=== PATIENT | female | born 1995 | race Caucasian/White ===

== ENCOUNTER 2016-07-15 18:46 | Outpatient (CLI) | payer OTHER ==
[~2016-07-15 18:46] MED LIST: ACET325T14 PO; PREN1TAB69 PO
[2016-07-15] MEDS ORDERED: ONDANSETRON ODT 4 MG PO ONE (20:00)
[2016-07-15] MEDS ORDERED: ONDANSETRON ODT 4 MG ONE (20:06)
[2016-07-15 20:19] LABS: BLOOD UREA NITROGEN 10 mg/dL (7-18)
[2016-07-15 20:26] LABS: ASPARTATE AMINO TRANSFERASE 12 U/L (15-37)
[2016-07-15 20:44] LABS: DAU SCREEN DISCLAIMER
== END 2016-07-15 23:00 | disposition home or self-care (01) ==
LOC: LDOP 18:46
PROVIDERS: ATTEND Obstetrics & Gynecology
DX: O26.893 Other specified pregnancy related conditions, third trimester (principal); R42 Dizziness and giddiness; O21.9 Vomiting of pregnancy, unspecified; O62.9 Abnormality of forces of labor, unspecified; O48.0 Post-term pregnancy; Z3A.41 41 weeks gestation of pregnancy
CPT/HCPCS: 36415; 59025; 80053; 80307; 81001; 82570; 83615; 84156; 84550; 85025; 99211; Q0162; G0463

== ENCOUNTER 2016-07-18 06:19 | Inpatient (IN) | payer OTHER ==
[~2016-07-18] VITALS: Ht 167.6 cm; Wt 82.7 kg
[2016-07-18 07:13] VITALS: BP 126/83
[2016-07-18] MEDS ORDERED: OXYcodone/APAP 5/325MG TABLET PO PRN ×4 (07:25→17:30)
[2016-07-18] MEDS ORDERED: OXYTOCIN 30U/ 0.9% NaCL 500ML 500 ML IV ONE (07:25)
[2016-07-18] MEDS ORDERED: CALCIUM CARBONATE 500 MG TAB.CHEW PO PRN (07:25)
[2016-07-18] MEDS ORDERED: IBUPROFEN 600 MG TABLET PO PRN (07:25)
[2016-07-18] MEDS ORDERED: FENTANYL PF 100 MCG/2ML IV PRN (07:30)
[2016-07-18] MEDS ORDERED: FENTANYL PF 100 MCG/2ML IVPush PRN (07:30)
[2016-07-18] MEDS ORDERED: ONDANSETRON 2MG/ML, 2ML IVPush PRN (07:30)
[2016-07-18] MEDS ORDERED: NEWBORN KIT ONE (07:52)
[2016-07-18] MEDS: LACTATED RINGERS 1,000 ML IV SCH ×3 (08:06→18:20)
[2016-07-18 08:07] VITALS: BP 126/83
[2016-07-18 08:18] LABS: HEMOGLOBIN 12.7 g/dL (11.7-16.4)
[2016-07-18] MEDS ORDERED: ACET-1600 PO (09:27)
[2016-07-18] MEDS ORDERED: OXYTOCIN 30U/ 0.9% NaCL 500ML 500 ML ONE ×2 (10:04→19:08)
[2016-07-18] MEDS ORDERED: LIDOCAINE 1%, 20ML ONE (10:04)
[2016-07-18] MEDS ORDERED: MISOPROSTOL 200 MCG TABLET ONE (10:04)
[2016-07-18] MEDS ORDERED: FENTANYL PF 100 MCG/2ML ONE (10:12)
[2016-07-18] MEDS ORDERED: CALCIUM CARBONATE 500 MG TAB.CHEW ONE (10:29)
[2016-07-18] MEDS ORDERED: FENTANYL/BUPIV./NS/PF 250 ML EPIDCONT ONE (12:00)
[2016-07-18] MEDS ORDERED: LIDOCAINE/PF 1.5%-EPI 1:200K, 30ML ONE (12:00)
[2016-07-18] MEDS ORDERED: BUPIVACAINE/PF 0.25% ONE (12:00)
[2016-07-18] MEDS ORDERED: OXYTOCIN 30U/ 0.9% NaCL 500ML 500 ML IV PRN (12:50)
[2016-07-18] MEDS ORDERED: ACETAMINOPHEN 325 MG TABLET ONE (13:10)
[2016-07-18] MEDS ORDERED: FAMOTIDINE 20 MG/2 ML ONE (13:10)
[2016-07-18] MEDS ORDERED: ACETAMINOPHEN 325 MG TABLET PO PRN ×3 (13:30→17:30)
[2016-07-18] MEDS ORDERED: FAMOTIDINE 20 MG/2 ML IVPush SCH (13:30)
[2016-07-18] MEDS ORDERED: FENTANYL/BUPIV./NS/PF 250 ML EPIDCONT SCH (13:49)
[2016-07-18] MEDS ORDERED: LACTATED RINGERS 1,000 ML IV SCH (13:49)
[2016-07-18] MEDS ORDERED: ONDANSETRON 2MG/ML, 2ML ONE (13:57)
[2016-07-18] MEDS ORDERED: LACTATED RINGERS 1,000 ML IVBOLUS PRN (14:00)
[2016-07-18] MEDS: D5%-LACTATED RINGERS 1,000 ML IV SCH ×2 (14:04→15:25)
[2016-07-18] MEDS ORDERED: IBUPROFEN 600 MG TABLET ONE (17:29)
[2016-07-18] MEDS ORDERED: OXYcodone/APAP 5/325MG TABLET ONE (17:30)
[2016-07-18] MEDS ORDERED: MISOPROSTOL 200 MCG TABLET PR PRN (17:30)
[2016-07-18] MEDS ORDERED: DOCUSATE 100 MG CAPSULE PO PRN (17:30)
[2016-07-18] MEDS ORDERED: ONDANSETRON 2MG/ML, 2ML IV PRN (17:30)
[2016-07-18] MEDS: OXYTOCIN 30U/ 0.9% NaCL 500ML 500 ML IV SCH (19:18)
[2016-07-18 19:45] VITALS: BP 131/78
[2016-07-19 00:20] VITALS: BP 127/75
[2016-07-19 01:32] LABS: HEMOGLOBIN 10.6 g/dL (11.7-16.4)
[2016-07-19] MEDS: OXYTOCIN 30U/ 0.9% NaCL 500ML 500 ML IV SCH (02:43)
[2016-07-19] MEDS ORDERED: IBUP-1222 PO (03:46)
[2016-07-19 04:20] VITALS: BP 122/79
[2016-07-19] MEDS: IBUPROFEN 600 MG TABLET PO PRN ×2 (04:31→11:35)
[2016-07-19 09:00] VITALS: BP 134/75
[2016-07-19] MEDS ORDERED: PRENATAL VIT/IRON/FA 1 EACH TABLET PO SCH (09:00)
[2016-07-19 12:05] VITALS: BP 118/72
[2016-07-19] MEDS ORDERED: OXYC-302 PO (14:03)
[2016-07-19] MEDS ORDERED: DOCU-30 PO (14:04)
== END 2016-07-19 19:15 | disposition home or self-care (01) | DRG 775 ==
LOC: LDOP 06:19 → LDIP 07:29 → 2NW 19:30
PROVIDERS: ADMIT Obstetrics & Gynecology; ATTEND Obstetrics & Gynecology
PROC: 10E0XZZ Delivery of Products of Conception, External Approach (ICD-10-PCS; principal; 2016-07-18)
PROC: 10907ZC Drainage of Amniotic Fluid, Therapeutic from Products of Conception, Via Natural or Artificial Opening (ICD-10-PCS; 2016-07-18)
PROC: 00HU33Z Insertion of Infusion Device into Spinal Canal, Percutaneous Approach (ICD-10-PCS; 2016-07-18)
PROC: 3E0R3CZ (ICD-10-PCS; 2016-07-18)
PROC: 0T9B70Z Drainage of Bladder with Drainage Device, Via Natural or Artificial Opening (ICD-10-PCS; 2016-07-18)
DX: O48.0 Post-term pregnancy (principal); O77.0 Labor and delivery complicated by meconium in amniotic fluid; O71.82 Other specified trauma to perineum and vulva; Z37.0 Single live birth; Z3A.41 41 weeks gestation of pregnancy
CPT/HCPCS: 36415; 81001; 82803; 85025; 86850; 86900; J2405; J3010; J2590; J7120; J7121; S0028